=== PATIENT | male | born 1955 | race Caucasian/White ===

== ENCOUNTER 2020-09-03 13:56 | Emergency (ER) | payer BC ==
[~2020-09-03] VITALS: Ht 175.2 cm; Wt 81.6 kg
[2020-09-03 14:25] LABS: BASO # 0.1 10*3/uL (0.0-0.1); BASO % 1.2 % (0.0-1.0); EOS # 0.2 10*3/uL (0.0-0.4); EOS % 3.6 % (1.0-4.0); HEMATOCRIT 43.8 % (42.0-52.0); LYMPH # 2.1 10*3/uL (1.3-4.4); LYMPH % 36.3 % (27.0-41.0); MEAN CELL VOLUME 97.1 fl (80.0-94.0); MEAN CORPUSCULAR HGB 31.9 pg (27.0-31.0); MEAN CORPUSCULAR HGB CONC 32.9 g/dl (33.0-37.0); MEAN PLATELET VOLUME 11.2 fl (9.6-12.3); MONO # 0.7 10*3/uL (0.1-1.0); MONO % 12.3 % (3.0-9.0); NEUT # 2.7 10*3/uL (2.3-7.9); NEUT % 46.4 % (47.0-73.0); PLATELET COUNT AUTOMATED 221 10*3/uL (130-400); RED BLOOD COUNT 4.51 10*6/uL (4.50-5.90); RED CELL DISTRI WIDTH 12.4 % (0-14.5); WHITE BLOOD COUNT 5.8 10*3/uL (4.8-10.8)
[2020-09-03] MEDS ORDERED: METOPROLOL SUCC25 M2 PO (14:36)
[2020-09-03] MEDS ORDERED: ATORVASTATIN CA40 M1 PO (14:36)
[2020-09-03] MEDS ORDERED: PANTOPRAZOLE SO40 MG PO (14:36)
[2020-09-03] MEDS ORDERED: BRILINTA90 M1 PO (14:36)
[2020-09-03] MEDS ORDERED: BUSPIRONE HCL10 MG PO (14:36)
[2020-09-03] MEDS ORDERED: ASPIRIN CHEWABL81 MG PO (14:39)
[2020-09-03 14:41] LABS: ACT PARTIAL THROMBO TIME 29.1 SECONDS (20.0-32.1)
[2020-09-03 14:42] LABS: ALBUMIN 4.1 gm/dl (3.1-4.5); ALKALINE PHOSPHATASE 95 U/L (45-117); BUN 15 mg/dl (7-24); CHLORIDE 107 mmol/L (98-107); CREATININE 1.18 mg/dL (0.70-1.30); POTASSIUM 4.5 mmol/L (3.5-5.1); SGOT/AST 24 IU/L (3-35); SGPT/ALT 43 U/L (12-78); SODIUM 139 mmol/L (136-145)
[2020-09-03 14:46] LABS: TROPONIN I < 0.015 ng/ml (<0.045)
== END 2020-09-03 18:11 | disposition home or self-care (01) ==
LOC: ED 13:56
PROVIDERS: Internal Medicine
DX: R07.9 Chest pain, unspecified (principal); Z79.899 Other long term (current) drug therapy; Z79.82 Long term (current) use of aspirin